=== PATIENT | female | born 1935 | race Caucasian/White ===

== ENCOUNTER → 2025-07-06 | Outpatient (CLI) | payer MEDICARE, SELFPAY ==
[2025-07-06 12:12] LABS: AST(SGOT) 34 U/L (<=31); Alanine Aminotransfer ALT/SGPT 27 U/L (<=34); Albumin, Serum 3.9 g/dL (3.4-4.8); Alkaline Phosphatase 122 U/L (35-104); Anion Gap 11 (5-15); BUN 34 mg/dL (4-19); BUN/Creat Ratio 27.3 RATIO (10-20); Calcium,Total 9.2 mg/dL (7.6-11.0); Carbon Dioxide 23.2 mmol/L (21.0-32.0); Chloride 105 mmol/L (98-108); Globulin 2.9 g/dL (2.2-4.2); Glucose 85 mg/dL (70-99); Magnesium 2.5 mg/dL (1.5-2.2); Potassium 5.2 mmol/L (3.3-5.1)
== END | disposition home or self-care (01) ==
LOC: LAB 11:02
PROVIDERS: PCP Physician Assistant; Referring Provider Internal Medicine Cardiovascular Disease; Visit Provider Internal Medicine Cardiovascular Disease
DX: I10 Essential (primary) hypertension (principal); R55 Syncope and collapse
CPT/HCPCS: 36415; 80053; 83735; 84443

== ENCOUNTER → 2025-07-20 | Outpatient (CLI) | payer MEDICARE, SELFPAY ==
[2025-07-20 10:44] LABS: AST(SGOT) 27 U/L (<=31); Alanine Aminotransfer ALT/SGPT 21 U/L (<=34); Albumin, Serum 4.0 g/dL (3.4-4.8); Alkaline Phosphatase 103 U/L (35-104); Anion Gap 11 (5-15); BUN 22 mg/dL (4-19); BUN/Creat Ratio 21.8 RATIO (10-20); Calcium,Total 9.0 mg/dL (7.6-11.0); Carbon Dioxide 24.2 mmol/L (21.0-32.0); Chloride 105 mmol/L (98-108); Globulin 2.6 g/dL (2.2-4.2); Glucose 96 mg/dL (70-99); Potassium 4.0 mmol/L (3.3-5.1)
== END | disposition home or self-care (01) ==
LOC: LAB 09:31
PROVIDERS: PCP Physician Assistant; Referring Provider Student in an Organized Health Care Education/Training Program; Visit Provider Student in an Organized Health Care Education/Training Program
DX: I10 Essential (primary) hypertension (principal); E78.5 Hyperlipidemia, unspecified; R94.5 Abnormal results of liver function studies
CPT/HCPCS: 36415; 80053

== ENCOUNTER → 2025-07-24 | Outpatient (CLI) | payer MEDICARE, SELFPAY ==
--- NOTE | 2025-07-24 08:12 | CDU_ITS ---
Reason For Study Reason For Study: Syncope Rt. Velocities/BP Lt. Velocities/BP Prox CCA 64.4/14.9 cm/sec. Prox CCA 108.8/21.6 cm/sec. Mid CCA 66.6/16.0 cm/sec. Mid CCA 61.1/17.1 cm/sec. Dist CCA 56.7/19.3 cm/sec. Dist CCA 64.4/19.3 cm/sec. Prox ICA 132.1/27.9 cm/sec. Prox ICA 49.0/17.1 cm/sec. Mid ICA 85.4/26.2 cm/sec. Mid ICA 80.9/24.8 cm/sec. Dist ICA 96.0/30.0 cm/sec. Dist ICA 83.1/22.6 cm/sec. Rt. ICA/CCA = 2.0. Lt. ICA/CCA = 1.4. Prox ECA 63.3/8.4 cm/sec. Prox ECA 134.4/24.8 cm/sec. Rt. Vert. 49.4/9.2 cm/sec. Lt. Vert. 58.2/11.0 cm/sec. Right Extracranial There is homogeneous, smooth atherosclerotic plaque noted in the right common carotid artery. There is heterogeneous, irregular atherosclerotic plaque noted in the right internal carotid artery. There is heterogeneous, irregular atherosclerotic plaque noted in the right external carotid artery. Antegrade flow is noted in the right vertebral artery. Left Extracranial There is intimal thickening but no significant atherosclerotic plaque noted in the left common carotid artery. There is heterogeneous, irregular atherosclerotic plaque noted in the left internal carotid artery. There is heterogeneous, irregular atherosclerotic plaque noted in the left external carotid artery. Antegrade flow is noted in the left vertebral artery. Procedure Carotid Duplex 54812. This is a Carotid Duplex examination using B-mode, color flow and specral Doppler. The exam was diagnostic. Exam performed in department. VL/Carotid Duplex Ultrasound Interpretation Summary Moderate (50-69%) stenosis right extracranial internal carotid. Mild (<50%) stenosis left extracranial internal carotid. Patent and antegrade vertebrals bilaterally. Ordering Physician: Bob Nascimento Referring Physician: Kevin Mckeon Performed By: Jacob Tovar RVT and Student
--- NOTE | 2025-07-24 08:20 | CT_ITS ---
PROCEDURE: BRAIN/HEAD W/WO CONTRAST 07/24/2025 REASON FOR EXAM: SYNCOPE (PASSING OUT EPISODES) TECHNIQUE: Procedure Code: CTBRWW Modality: CT Procedure: BRAIN/HEAD W/WO CONTRAST Coronal and Sagittal reconstruction series were provided. CONTRAST: VOLUME: mL One or more dose reduction techniques were used (e.g., Automated exposure control, adjustment of the mA and/or kV according to patient size, use of iterative reconstruction technique). FINDINGS: No acute intracranial hemorrhage. No midline shift. Mild generalized atrophy. Bilateral benign basal ganglia calcifications. Moderate to severe confluence FLAIR hyperintensities throughout the bilateral cerebral white matter likely represent chronic microvascular ischemic changes.. Atherosclerotic calcifications are noted within the carotid siphons. No extra-axial fluid collection is identified. No fracture. The calvarium is intact. The visualized paranasal sinuses and mastoid air cells are clear. No abnormal enhancement pattern. CT/Brain/Head W/WO Contrast IMPRESSION: No acute intracranial CT abnormality. Chronic intracranial findings, as described above. Reading Location: [id number]
--- OUTSIDE RECORDS SUMMARY | 2025-07-24 08:34 | XMS RPT_ITS | CCD ---
Author Organization [facility] Care Team Providers Care Water Treatment Plant Engineer Name Role Phone VANESSA CONDE Unavailable Unavailable KROEN, MAYA D Unavailable Unavailable KROEN, MAYA D Unavailable Unavailable VIGNESH CONNELLY, DR DAYANNA Buchanan Attending Unavail able VIGNESH DO, DR DAYANNA Buchanan Primary Care Unavail able VIGNESH DO, DR DAYANNA Buchanan Attending Unavail able VIGNESH DO, DR DAYANNA Buchanan Primary Care Unavail able CHIN, LUKE E Admitting Unavailable CHIN, LUKE E Primary Care Unavailable CHIN, LUKE E Consulting Unavailable CHIN, LUKE E Attending Unavailable PROVIDER, UNKNOWN Consulting Unavailable GONSALEZ, ONIEL Admitting Unavailable GONSALEZ, ONIEL Primary Care Unavailable GONSALEZ, ONIEL Attending Unavailable Chin Kevin PALAFOX Primary Care Physician [phone] Kevin Mcintyre Referring Provider Dr. Bob Nascimento MD Attending Physician Kevin Mcintyre Primary Care Physician [phone] Dr. Bob Nascimento MD Referring Provider Bob Nascimento Attending Unavailable Chin, Luke Referring Unavailable Chin, Luke Primary Care Unavailable Azam Bob Referring Unavailable AzamBob Attending Unavailable Chin, Luke Primary Care Unavailable AzamFreda dennisond Referring Unavailable Azam Bob Attending Unavailable Chin, Luke Primary Care Unavailable Chin, Luke Primary Care Unavailable Demiter, Azael Referring Unavailable Demiter, Azael Attending Unavailable Azam Bob Referring Unavailable AzamFredad Attending Unavailable Chin, Luke Primary Care Unavailable Medications Current Medications Medication Drug Class(es) Dates Sig (Normalized) Sig (Original) aspirin 81 mg oral tablet (2 sources) Platelet Aggregation Inhibitor, Nonsteroidal Anti-inflammatory Drug Start: 07-06-2025 take 1 tablet by mouth once daily factor 5 (2 sources) Start: 07-06-2025 forever arctic sea (2 sources) Start: 07-06-2025 garlic-Thyme (2 sources) Start: 07-06-2025 losartan potassium 50 mg oral tablet (4 sources) Angiotensin 2 Receptor Trevor Start: 07-06-2025 End: 07-06-2025 take 1 tablet by mouth once daily oral chelation 11 (2 sources) Start: 07-06-2025 vit b12 (2 sources) Start: 07-06-2025 Completed/Discontinued Medications Medication Drug Class(es) Dates Sig (Normalized) Sig (Original) lisinopril 5 mg oral tablet (2 sources) Angiotensin Converting Enzyme Inhibitor Start: 06-15-2025 End: 07-06-2025 take 1 tablet by mouth once daily Lisinopril 5 mg tablet Discontinued 5 mg PO daily June 15, 2025 12:00am July 06, 2025 11:47am Problems Problem Classification Problem Date Documented Da te Episodic/Chronic Cardiac dysrhythmias (5 sources) Multiple premature ventricular complexes; Translations: [Ventricular premature depolarization] Onset: 07-19-2025 07-06-2025 Chronic Essential hypertension (5 sources) Hypertensive disorder; Translations: [Essential (primary) hypertension] Onset: 07-16-2025 07-06-2025 Chronic Genitourinary symptoms and ill-defined conditions (1 source) Frequency of micturition; Translations: [Frequency of micturition] Onset: 01-16-2025 Episodic Other aftercare (2 sources) Other snf (current) drug therapy; Translations: [Other formwork carpenter (current) drug therapy] Onset: 02-10-2023 Episodic Other screening for suspected conditions (not mental disorders or infectious disease) (4 sources) Encounter for screening for lipoid disorders; Translations: [Electrocardiogram abnormal] Onset: 02-10-2023 Episodic Syncope (7 sources) Syncope; Translations: [Syncope and collapse] Onset: 06-01-2018 07-06-2025 Episodic Unclassified (1 source) Unknown / UNK(Unknown) Onset: 06-01-2018 Results Test Name Value Interpretation Reference Range Facility Comprehensive Metabolic Prof earl 07-20-2025 Albumin [Mass/Vol] 4.0 g/dL Normal 3.4-4.8 [facility] Comment on above: Performed By: #### L 500.4050 #### [facility] [address] [place], [address] Albumin/Globulin [Mass ratio] 1.5 {ratio} Normal 0.9-2.4 [facility] Comment on above: Performed By: #### L [id number] #### [facility] [address] [place], [address] ALK PHOS 103 U/L Normal 35-104 [facility] Comment on above: Performed By: #### L [id number] #### [facility] [address] [place], [address] ALT [Catalytic activity/Vol] 21 U/L Normal <=34 [facility] Comment on above: Performed By: #### L [id number] #### [facility] [address] [place], [address] AST [Catalytic activity/Vol] 27 U/L Normal <=31 [facility] Comment on above: Performed By: #### L [id number] #### [facility] [address] [place], [address] Bilirubin [Mass/Vol] 0.44 mg/dL Normal 0.00-1.30 [facility] Comment on above: Performed By: #### L [id number] #### [facility] [address] [place], [address] BUN/CRE 21.8 RATIO High 10-20 [facility] Comment on above: Performed By: #### L [id number] #### [facility] [address] [place], [address] Calcium [Mass/Vol] 9.0 mg/dL Normal 7.6-11.0 [facility] Comment on above: Performed By: #### L 500.4050 #### [facility] [address] [place], [address] Chloride [Moles/Vol] 105 mmol/L Normal 98-108 [facility] Comment on above: Performed By: #### L [id number] #### [facility] [address] [place], [address] CO2 [Moles/Vol] 24.2 mmol/L Normal 21.0-32.0 [facility] Comment on above: Performed By: #### L [id number] #### [facility] [address] [place], [address] Creatinine [Mass/Vol] 0.99 mg/dL Normal 0.70-1.20 [facility] Comment on above: Performed By: #### L [id number] #### [facility] [address] [place], [address] GAP 11 Normal 5-15 [facility] Comment on above: Performed By: #### L [id number] #### [facility] [address] [place], [address] GFR/1.73 sq M.predicted among non-blacks MDRD (S/P/Bld) [Vol rate/Area] 55 mL/min/{1.73_m2} Low >60 [facility] Comment on above: Result Comment: mL/m in/1.73m2 CKD-EPI Creatinine Equation (2020) Performed By: #### L [id number] #### [facility] [address] [place], [address] Globulin (S) [Mass/Vol] 2.6 g/dL Normal 2.2-4.2 [facility] Comment on above: Performed By: #### L [id number] #### [facility] [address] [place], [address] Glucose [Mass/Vol] 96 mg/dL Normal 70-99 [facility] Comment on above: Performed By: #### L [id number] #### [facility] [address] [place], [address] Potassium [Moles/Vol] 4.0 mmol/L Normal 3.3-5.1 [facility] Comment on above: Performed By: #### L 500.4050 #### [facility] [address] [place], [address] Sodium [Moles/Vol] 140 mmol/L Normal 133-145 [facility] Comment on above: Performed By: #### L 500.4050 #### [facility] [address] [place], [address] T PROT 6.6 g/dL Normal 5.9-8.4 [facility] Comment on above: Performed By: #### L [id number] #### [facility] [address] [place], [address] Urea nitrogen [Mass/Vol] 22 mg/dL High 4-19 [facility] Comment on above: Performed By: #### L 500.4050 #### [facility] [address] [place], [address] Anion gap in Serum or Plasma Ordered By: Bob Nascimento on 07-06-2025 Anion gap [Moles/Vol] 11 mmol/L 5-15 [facility] BUN/creatinine ratioOrdered By: Bob Nascimento on 07-06-2025 Urea nitrogen/Creatinine [Mass ratio] 27.3 mg/mg High 10-20 [facility] Bilirubin, totalOrdered By: Bob Nascimento on 07-06-2025 Bilirubin [Mass/Vol] 0.32 mg/dL 0.00-1.30 [facility] Carbon dioxide, total [Moles /volume] in Central venous bloodOrdered By: Bob Nascimento on 07-06-2025 CO2 [Moles/Vol] 23.2 mmol/L 21.0-32.0 [facility] Cardiology Visit Reporton Cardiology Visit Report [facility] [address] [place] [address] OFFICE VISIT Date of Service: 07/06/25 MR#: [id number] Acct: [id number] Name: ELLA LAWSON Rep #: [id number] : 1935 Provider: Dr. Bob Nascimento MD Age/Sex: 89/F Location: [facility] Status: Signed HPI HPI History of Present Illness Details: This pleasant 89-year-old female has past medical history significant for hypertension. She is here for her complaints of syncopal episodes. According to the patient, she has been having syncopal episodes for many years now. She would get them rarely in the past but recently she has been getting them more frequently. She has had a synco pal episode in January of this year and then again last month. Per patient, she would be sitting when all of a sudden she loses consciousness. Denies any prodromal symptoms. No warning signs. Denies any chest pains or shortness of breath prior to that or afterwards. No lightheadedness or dizziness. No palpitations. No diaphoresis. Per patient and her daughter, she regains consciousness spontaneously after couple of minutes. No seizure activity has ever been noticed. No bladder or bowel incontinence. Patient recently had a 30-day event monitoring done. It showed occasional first-degree AV block. PACs and PVCs were noted. No significant atrial or ventricular runs reported. Patient denies any history of chest pain or shortness of breath either at rest or with exertion. No severe headaches. No orthopnea or PND. Denies any palpitations. No ankle edema. Intake Vital Signs 07/06/25 10:09 Height 5 ft 6 in Weight: 168 lb BMI 27.1 BP 172/88 H Blood Pressure Location Lt brachial Position Sitting Respiration 18 Pulse 57 L Pulse Source Monitor Intake Visit Reasons: PAC/PVC/AFIB (CHIN) Director Of Outreach Required: No Accompanied by: Daughter Is patient in pain?: No Allergies No Known Allergies Allergy (Unverified 07/06/25 09:59) Medications ???Medication ???Instructions ???Recorded ???Confirmed ???Type lisinopril 5 mg tablet 5 mg PO QDAY 06/15/25 07/06/25 His tory aspirin 81 mg tablet 81 mg PO QDAY 07/06/25 07/06/25 Hi story factor 5 PO QDAY 07/06/25 07/06/25 History forever arctic sea PO BID 07/06/25 07/06/25 History garlic-Thyme PO BID 07/06/25 07/06/25 History oral chelation 11 PO DAILY 07/06/25 07/06/25 History vit b12 PO BID 07/06/25 07/06/25 History Have you fallen in the past year?: Yes (2- pass out) [facility] Medical History (Updated 07/06/25 @ 10:[address] Bob Nascimento MD) Heart murmur Hypertension Syncope Hyperlipidemia Social History (Updated 06/15/25 @ 15:33 by Caity Adan LPN) Smoking Status: Never smoker substance use type: does not use caffeine: No ROS Const Const: Positive for fatigue; Negative for weakness Eyes Eyes: Negative for change in vision ENT ENT: Positive for balance problems; Negative for dizziness Cardio Chest Pain: No Palpitations: No Edema: Bilateral Resp Respiratory: Negative for SOB with activity, SOB at rest or SOB orthopnea SOB lying down GI GI: Negative nausea or heartburn Musc Musc: Positive for balance problems Neuro Neuro: Positive for near syncope and syncope; Negative for dizziness or weakness Endo Endo: Positive for fatigue Cardiology Exam Const Appearance: comfortable and no acute distress Nutritional Appearance: well nourished Neck Neck: no JVD Carotids: Negative bruit Chest Auscultation: Bilateral: Clear to Auscultation Cardio Rate: regular rate Rhythm: regular rhythm Heart sounds: S1 normal and S2 normal Soft systolic murmur at base. Neuro General: patient alert, patient awake and patient oriented x3 Extremities Lower Extremity Edema: None: Bilateral Supplemental Info Supplemental Information Past Visits: Cardiology Visit Today Assessment and Plan Assessment and Plan (1) Syncope: Status: Chronic Plan: Longstanding issue for the patient but becoming more frequent. Will check echocardiogram. Check Lexiscan stress Myoview. Check carotid Doppler. CT scan of the head. (2) Hypertension: Status: Chronic Plan: Blood pressure above goal. DC lisinopril. Start on losartan 50 mg once daily. (3) PVCs (premature ventricular contractions): Status: Chronic Plan: PVCs and PACs noted on 30-day event monitoring. Asymptomatic. First-degree AV block. Likely underlying sick sinus syndrome. Monitor. Check TSH. Magnesium. Basic serum chemistries. Orders: Orders 12 Lead EKG performed by BMS Today I10 - Essential (primary) hypertension, R55 - Syncope and collapse Thyroid Stim Hormone (TSH) Today I10 - Essential (primary) hypertension Comprehensive Metabolic Profil Today I10 - Essential (primary) hypertension (more content not included)... Normal [facility] Chloride assayOrdered By: Jean Claude Nascimento on 07-06-2025 Chloride [Moles/Vol] 105 mmol/L 98-108 [facility] Comprehensive Metabolic Prof ilon 07-06-2025 Albumin [Mass/Vol] 3.9 g/dL Normal 3.4-4.8 [facility] Comment on above: Performed By: #### L 500.4050, L501.5200, L501.9520 #### [facility] [address] [place], [address] Albumin/Globulin [Mass ratio] 1.4 {ratio} Normal 0.9-2.4 [facility] Comment on above: Performed By: #### L 500.4050, L501.5200, L501.9520 #### [facility] [address] [place], [address] ALK PHOS 122 U/L High 35-104 [facility] Comment on above: Performed By: #### L 500.4050, L501.5200, L501.9520 #### [facility] [address] [place], [address] ALT [Catalytic activity/Vol] 27 U/L Normal <=34 [facility] Comment on above: Performed By: #### L 500.4050, L501.5200, L501.9520 #### [facility] [address] [place], [address] AST [Catalytic activity/Vol] 34 U/L High <=31 [facility] Comment on above: Performed By: #### L 500.4050, L501.5200, L501.9520 #### [facility] [address] [place], [address] Bilirubin [Mass/Vol] 0.32 mg/dL Normal 0.00-1.30 [facility] Comment on above: Performed By: #### L 500.4050, L501.5200, L501.9520 #### [facility] [address] [place], [address] BUN/CRE 27.3 RATIO High 10-20 [facility] Comment on above: Performed By: #### L 500.4050, [id number], L501.9520 #### [facility] [address] [place], [address] Calcium [Mass/Vol] 9.2 mg/dL Normal 7.6-11.0 [facility] Comment on above: Performed By: #### L 500.4050, L501.5200, L501.9520 #### [facility] [address] [place], [address] Chloride [Moles/Vol] 105 mmol/L Normal 98-108 [facility] Comment on above: Performed By: #### L 500.4050, L501.5200, L501.9520 #### [facility] [address] [place], [address] CO2 [Moles/Vol] 23.2 mmol/L Normal 21.0-32.0 [facility] Comment on above: Performed By: #### L 500.4050, L501.5200, L501.9520 #### [facility] [address] [place], [address] Creatinine [Mass/Vol] 1.25 mg/dL High 0.70-1.20 [facility] Comment on above: Performed By: #### L 500.4050, [id number], L501.9520 #### [facility] [address] [place], [address] GAP 11 Normal 5-15 [facility] Comment on above: Performed By: #### L 500.4050, [id number], L501.9520 #### [facility] [address] [place], [address] GFR/1.73 sq M.predicted among non-blacks MDRD (S/P/Bld) [Vol rate/Area] 41 mL/min/{1.73_m2} Low >60 [facility] Comment on above: Result Comment: mL/m in/1.73m2 CKD-EPI Creatinine Equation (2020) Performed By: #### L 500.4050, L501.5200, L501.9520 #### [facility] [address] [place], [address] Globulin (S) [Mass/Vol] 2.9 g/dL Normal 2.2-4.2 [facility] Comment on above: Performed By: #### L 500.4050, L501.5200, L501.9520 #### [facility] [address] [place], [address] Glucose [Mass/Vol] 85 mg/dL Normal 70-99 [facility] Comment on above: Performed By: #### L 500.4050, L501.5200, L501.9520 #### [facility] [address] [place], [address] Potassium [Moles/Vol] 5.2 mmol/L High 3.3-5.1 [facility] Comment on above: Performed By: #### L 500.4050, L501.5200, L501.9520 #### [facility] [address] [place], [address] Sodium [Moles/Vol] 139 mmol/L Normal 133-145 [facility] Comment on above: Performed By: #### L 500.4050, [id number], L501.9520 #### [facility] [address] [place], [address] T PROT 6.9 g/dL Normal 5.9-8.4 [facility] Comment on above: Performed By: #### L 500.4050, L501.5200, L501.9520 #### [facility] [address] [place], [address] Urea nitrogen [Mass/Vol] 34 mg/dL High 4-19 [facility] Comment on above: Performed By: #### L 500.4050, L501.5200, L501.9520 #### [facility] [address] [place], [address] Glomerular filtration rate ( GFR) estimation/1.73 sq m using serum, plasma, or whole bOrdered By: Bob Nascimento on 07-06-2025 GFR/1.73 sq M.predicted among non-blacks MDRD (S/P/Bld) [Vol rate/Area] 41 mL/min/{1.73_m2} Low >60 [facility] Comment on above: mL/min/1.73m2 CKD-EP I Creatinine Equation (2020) Laboratory - Chemistry and C hemistry - challengeOrdered By: Bob Nascimento on 07-06-2025 AST [Catalytic activity/Vol] 34 U/L High <32 [facility] Magnesiumon 07-06-2025 Magnesium [Mass/Vol] 2.5 mg/dL High 1.5-2.2 [facility] Comment on above: Performed By: #### L 500.4050, L501.5200, L501.9520 #### [facility] [address] [place], [address] Magnesium measurement (mass/ volume)Ordered By: Bob Nascimento on 07-06-2025 Magnesium (Unsp spec) [Mass/Vol] 2.5 mg/dL High 1.5-2.2 [facility] Potassium measurement (mass/ volume)Ordered By: Bob Nascimento on 07-06-2025 Potassium (Unsp spec) [Mass/Vol] 5.2 mmol/L High 3.3-5.1 [facility] Serum creatinine measurement (mass/volume)Ordered By: Bob Nascimento on 07-06-2025 Creatinine [Mass/Vol] 1.25 mg/dL High 0.70-1.20 [facility] Serum globulin measurementOr dered By: Bob Nascimento on 07-06-2025 Globulin (S) [Mass/Vol] 2.9 g/dL 2.2-4.2 [facility] Serum glucose measurement (m ass/volume)Ordered By: Bob Nascimento on 07-06-2025 Glucose [Mass/Vol] 85 mg/dL 70-99 [facility] Serum or plasma alanine pires otransferase (ALT) measurementOrdered By: Bob Nascimento on 07-06-2025 ALT [Catalytic activity/Vol] 27 U/L <35 [facility] Serum or plasma albumin alejandro urement (mass/volume)Ordered By: Bob Nascimento on 07-06-2025 Albumin [Mass/Vol] 3.9 g/dL 3.4-4.8 [facility] Serum or plasma albumin/glob ulin mass ratioOrdered By: Bob Nascimento on 07-06-2025 Albumin/Globulin [Mass ratio] 1.4 {ratio} 0.9-2.4 [facility] Serum or plasma alkaline nancy sphatase measurementOrdered By: Bob Nascimento on 07-06-2025 ALP [Catalytic activity/Vol] 122 U/L High 35-104 [facility] Serum or plasma calcium alejandro urement (mass/volume)Ordered By: Bob Nascimento on 07-06-2025 Calcium [Mass/Vol] 9.2 mg/dL 7.6-11.0 [facility] Serum or plasma urea nitroge n measurement (mass/volume)Ordered By: Bob Nascimento on 07-06-2025 Urea nitrogen [Mass/Vol] 34 mg/dL High 4-19 [facility] Sodium levelOrdered By: Maximino octavio Nascimento on 07-06-2025 Sodium [Moles/Vol] 139 mmol/L 133-145 [facility] TSH DL <= 0.005 mIU/L QnOrde red By: Bob Laytonan on 07-06-2025 TSH Qn 2.760 uIU/mL 0.300-4.20 0 [facility] Thyroid Stim Hormone (TSH)on 07-06-2025 TSH 2.760 uIU/mL Normal 0.300-4.20 0 [facility] Comment on above: Performed By: #### L 500.4050, L501.5200, L501.9520 #### [facility] [address] [place], [place], [id number] Total proteinOrdered By: Jay Nascimento on 07-06-2025 Protein [Mass/Vol] 6.9 g/dL 5.9-8.4 [facility] [address] BRAIN W/O CONTRASTon 06-2 CT BRAIN W/O CONTRAST [place] [address] Patient: ELLA LAWSON Phone#: : 1935 Age: 89 Gender: F Pt. Type: Out Account: [id number] Location: Ordering: KEVIN NEELY Exam Date: 04/14/2025/14:03 Family Phys: Charge Code: 564431 Physician: [place] Order #: [id number] Dose#: [id number] PROCEDURE: CT BRAIN WITHOUT CONTRAST COMPARISON: None. INDICATIONS: Syncope. TECHNIQUE: CT images were obtained without contrast material. All CT scans at this facility use dose modulation, iterative reconstruction, and/or weight based dosing when appropriate to reduce radiation dose to as low as reasonably achievable. IV CONTRAST: No IV contrast used,0ml TOTAL DOSE: 57.50 CTDIvol(mGy) FINDINGS: CEREBRUM: Age-appropriate atrophy is present, without visible acute hemorrhage or lesion. Small vessel disease changes are present. Idiopathic calcifications at the basal ganglia are present. CEREBELLUM: No edema, hemorrhage, mass, acute infarction, or inappropriate atrophy. BRAINSTEM: No edema, hemorrhage, mass, acute infarction, or inappropriate atrophy. CSF SPACES: Ventricles, cisterns, and sulci are appropriate for age. No hydrocephalus, subarachnoid hemorrhage, or mass. SKULL: No mass or other significant visible lesion. SINUSES: Limited views demonstrate no significant mucosal thickening or fluid. ORBITS: Limited views are unremarkable. OTHER: Negative. CONCLUSION: 1. There is no evidence of acute intracranial abnormality. Dictated by: Jackie Farooq MD on 04/14/2025 at 15:32 Approved by: Jackie Farooq MD on 04/14/2025 at 15:45 Normal [facility] Bacteria Ur Culton 5 Bacteria identified Cx Nom (U) ORGANISM ID: 1 >=100,000 CFU/ml Mixed microbiota No further workup. Mixed microbiota can be due to???urine???contamination with skin bacteria at time of collection or presence of a long-term urinary catheter. If a new culture is needed, please consider re-education of the patient on proper midstream co llection technique or straight catheterization for???urine???collection. Normal [facility] Comment on above: Performed By: #### 6 30-4 #### [facility] CLIA [id number] [address] [place] [address] OF [facility] URINE CULTURE [CCL]on 2024 Bacteria identified Cx Nom (U) URCUL See Results Below See Below CULTURE, URINE MIXED MICROBIOTA >=100,000 CFU/ml Mixed microbiota No further workup. Mixed microbiota can be due to???urine???contamination with s llection technique or straight catheterization for???urine???collection. SOURCE: Urine (Nonspecific) [facility] [address] [place] [address] Oscar Beauchamp III, M.D. [id number] Normal [facility] Comment on above: Performed By: #### 2 [id number] #### [facility],[address] [place] [address] .GFRon 02-10-2023 GFR 78 ml/min/1.73sqm Normal [facility] ([place]) Comment on above: Result Comment: GFR Population mean for , Non- Americans Ages 20-29 = 116 mL/min/1.73 sq.m. Ages 30-39 = 107 mL/min/1.73 sq.m. Ages 40-49 = 99 mL/min/1.73 sq.m. Ages 50-59 = 93 mL/min/1.73 sq.m. Ages 60-69 = 85 mL/min/1.73 sq.m. Ages 70+ = 75 mL/min/1.73 sq.m. Chronic Kidney Disease: Less than 60 mL/min/1.73 square meters End Stage Renal Disease: Less than 15 mL/min/1.73 square meters Performed By: #### C MP, LIPID, GFR #### [place] [id number] GFR Non- 64 ml/min/1.73sqm Normal [facility] ([place]) Comment on above: Result Comment: GFR Population mean for , Non- Americans Ages 20-29 = 116 mL/min/1.73 sq.m. Ages 30-39 = 107 mL/min/1.73 sq.m. Ages 40-49 = 99 mL/min/1.73 sq.m. Ages 50-59 = 93 mL/min/1.73 sq.m. Ages 60-69 = 85 mL/min/1.73 sq.m. Ages 70+ = 75 mL/min/1.73 sq.m. Chronic Kidney Disease: Less than 60 mL/min/1.73 square meters End Stage Renal Disease: Less than 15 mL/min/1.73 square meters Performed By: #### C MP, LIPID, GFR #### [address] [address] CMPon 02-10-2023 Albumin Level 3.6 G/dL Normal 3.4-4.8 [facility] ([place]) Comment on above: Performed By: #### C MP, LIPID, GFR #### [address] [address] Albumin/Globulin [Mass ratio] 1.1 {ratio} Normal 1.1-2.5 [facility] ([place]) Comment on above: Performed By: #### C MP, LIPID, GFR #### [address] [address] ALP [Catalytic activity/Vol] 123 U/L Normal 40-135 [facility] ([place]) Comment on above: Performed By: #### C MP, LIPID, GFR #### [address] [address] ALT [Catalytic activity/Vol] 29 U/L Normal 14-59 [facility] ([place]) Comment on above: Performed By: #### C MP, LIPID, GFR #### [address] [address] AST [Catalytic activity/Vol] 21 U/L Normal 10-40 [facility] ([place]) Comment on above: Performed By: #### C MP, LIPID, GFR #### [address] [address] Bili Total 0.4 mg/dL Normal 0.2-1.0 [facility] ([place]) Comment on above: Result Comment: Use of this assay is not recommended for patients undergoing treatment with eltrombopag due to the potential for falsely elevated results. Performed By: #### C MP, LIPID, GFR #### [address] [address] BUN/Creatinine Ratio 25 ratio Normal 7-27 [facility] ([place]) Comment on above: Performed By: #### C MP, LIPID, GFR #### [address] [address] Calcium [Mass/Vol] 9.4 mg/dL Normal 8.4-10.2 [facility] ([place]) Comment on above: Performed By: #### C MP, LIPID, GFR #### [address] [address] Chloride [Moles/Vol] 104 mmol/L Normal 98-107 [facility] ([place]) Comment on above: Performed By: #### C MP, LIPID, GFR #### [address] [address] CO2 [Moles/Vol] 28 mmol/L Normal 23-31 [facility] ([place]) Comment on above: Performed By: #### C MP, LIPID, GFR #### [address] [address] Creatinine [Mass/Vol] 0.84 mg/dL Normal 0.55-1.02 [facility] ([place]) Comment on above: Performed By: #### C MP, LIPID, GFR #### [address] [address] Electrolyte Balance 8.0 mEq/L Normal 4.0-15.0 [facility] ([place]) Comment on above: Performed By: #### C MP, LIPID, GFR #### [address] [address] Globulin 3.3 G/dL Normal [facility] ([place]) Comment on above: Performed By: #### C MP, LIPID, GFR #### [address] [address] Glucose [Mass/Vol] 91 mg/dL Normal 83-110 [facility] ([place]) Comment on above: Performed By: #### C MP, LIPID, GFR #### [address] [address] Potassium [Moles/Vol] 4.5 mmol/L Normal 3.5-5.1 [facility] ([place]) Comment on above: Performed By: #### C MP, LIPID, GFR #### [address] [address] Sodium [Moles/Vol] 140 mmol/L Normal 136-145 [facility] ([place]) Comment on above: Performed By: #### C MP, LIPID, GFR #### [address] [address] Total Protein 6.9 G/dL Normal 6.4-8.2 [facility] ([place]) Comment on above: Performed By: #### C MP, LIPID, GFR #### [address] [address] Urea nitrogen [Mass/Vol] 21 mg/dL High 7-18 [facility] ([place]) Comment on above: Performed By: #### C MP, LIPID, GFR #### [address] [address] LIPIDon 02-10-2023 Cholesterol [Mass/Vol] 256 mg/dL High 0-200 [facility] ([place]) Comment on above: Result Comment: Chol esterol Reference Interval: Less than 200 Desirable 200-239 Borderline high risk 240 and above High risk Performed By: #### C MP, LIPID, GFR #### [address] [address] Cholesterol in HDL [Mass/Vol] 73 mg/dL High 40-60 [facility] ([place]) Comment on above: Performed By: #### C MP, LIPID, GFR #### [address] [address] Cholesterol in LDL [Mass/Vol] 169 mg/dL High 0-130 [facility] ([place]) Comment on above: Performed By: #### C MP, LIPID, GFR #### [address] [address] Triglyceride [Mass/Vol] 68 mg/dL Normal 0-150 [facility] ([place]) Comment on above: Result Comment: Trig lyceride Reference Interval: Less than 150 Normal 150-199 Borderline high risk 200-499 High risk 500 or higher Very high risk Performed By: #### C MP, LIPID, GFR #### [address] [address] FC HIP UNILATERAL 2-3 VIEWSo n 09-08-2021 FC HIP UNILATERAL 2-3 VIEWS [place] [id number] Name: ELLA LAWSON Phys: NIXON DIAS : [birth year] Age: 86 Sex: F Acct: [id number] Loc: [id number] Exam Date: 09/08/21 Status: REG POV Radiology No.: Unit Number: [id number] Exam # Type/Exam [id number] [facility] / FC HIP UNILATERAL 2-3 VIEWS LT EXAMINATION: XRAY VIEWS OF THE LEFT HIP09/08/2021 10:48 am HIP LEFT COMPARISON: None HISTORY: ORDERING SYSTEM PROVIDED HISTORY: TECHNOLOGIST PROVIDED HISTORY: Reason for Exam: FALL FINDINGS: There is a fracture of the left pelvic ring with fracture lucencies through the superior and inferior pubic rami. Alignment at the pubic symphysis is symmetric, although there is significant degenerative change at the pubic symphysis. The left proximal femur and acetabulum are intact as is femoroacetabular alignment. Bones are demineralized. Degenerative changes in the lower lumbosacral spine also noted. Bowel gas pattern is nonobstructive.. IMPRESSION: Left pelvic ring fracture involving the superior and inferior pubic rami. Electronically signed By Karina Paez 09/08/2021 10:54:43 AM EST Workstation ID : [id number] < > Reported By: KARINA PAEZ D.O. Signed In Fluency By: KARINA PAEZ D.O. << Signature on File>> Reported By: KARINA PAEZ D.O. Signed By: KARINA PAEZ D.O. Tests performed at: [address] [address] Normal [facility] EMERGENCY DEPARTMENT REPORTo n 06-04-2018 EMERGENCY DEPARTMENT REPORT [place], [place] [address]FUFFLB INFORMATION MANAGEMENTEMERGENCY DEPARTMENT REPORTPatient: ELLA LAWSON JOEL A M.D.[id number][birth year] 83 FStatus: DIS Gail [facility] 2226-BDate of Service: 06/01/18CHIEF COMPLAINTSyncopal episode.HISTORY OF PRESENT ILLNESSThis is an 83-year-old lady brought in today with a syncopal episode that happened todaywhile she was seated. No other complaints. She had no warning prior to this. Shebasically was just sitting in the kitchen, helping, all of a sudden slumped over. She wasout for about 5 minutes they think. They did not notice any seizure activity. There wasno postictal phase and she did not have any numbness or weakness when she woke up. She hada similar episode several months ago while sitting in a [place] service. Again this was notwith standing and it occurred while she was seated and really with no warning again. Noother complaints at this point. She does not have a doctor, is not on any medicines.PAST SURGICAL HISTORYHad her appendix taken out in the distant past.MEDICATIONSNone.ALLERGI ESNone.FAMILY HISTORYNoncontributory.SOCIA L HISTORYNoncontributory.PHYSI DOREEN EXAMINATIONGeneral: A well-nourished, well-developed female who is awake, alert, and currently not inany acute distress. Vital signs: As charted. HEENT: Atraumatic and normocephalic.Oropharynx is moist. Neck is supple. No adenopathy or thyromegaly, no JVD. Cardiovascular:Regular rate and rhythm. There is a 3/6 systolic murmur, does radiate up into her carotids,was fairly holosystolic. Lungs are clear. The abdomen is soft. Neck is supple.Extremities: No clubbing, no cyanosis, no edema. She is neurologically awake, alert andoriented x3. Cranial nerves II through XII are intact. Sensory and motor exam is normal.Reflexes 2+, symmetric. Toes are downgoing.REVIEW OF SYSTEMSShe has not had any fevers, chills, or constitutional symptoms. No visual acuity problems.No problems with the ears, nose, mouth, or throat. Denies any productive cough or coldsymptoms. No bright red blood per rectum or melena. No urinary symptoms. No extremityedema, swelling, skin rashes, focal numbness, weakness, or confusion. No hallucinations,problems with hot or cold intolerance or lymph node swelling. She has had a history of somechronic left knee pain but no swelling recently. She was on a long car trip recently buthas not had any chest pain or shortness of breath. Review of systems is otherwise negative.EMERGENCY DEPARTMENT COURSEA 12-lead EKG was obtained and showed normal sinus rhythm, possibly with some LVH and somenonspecific ST depression laterally. Chest x-ray shows a normal-sized cardiac silhouette.There is no cardiomegaly. Laboratory studies including a CBC, basic, CPK, and troponin arenegative.CLINICAL DIAGNOSISSyncope.DISPOSITION /PLANShe is going to be admitted for further evaluation, echo, and monitoring. She had nofurther problems throughout the remainder of the emergency department course.ADMIT 06/14/18 1638 VANESSA CONDE M.D.cc: VANESSA CONDE M.D. << Signature on File>> Reported By: VANESSA CONDE M.D. Signed By: VANESSA CONDE M.D.Tests performed at:[address] [phone] [facility] 06-03-2018 Anion gap 3 molar conc 16.0 mmol/L Normal - [facility] Comment on above: Performed By: #### L 100.0010 ####[address] [address] Calcium mass conc 9.0 mg/dL Normal 8.8-10.2 [facility] Comment on above: Performed By: #### L 100.0010 ####[address] [address] Chloride molar conc 105 mmol/L Normal 98-107 [facility] Comment on above: Performed By: #### L 100.0010 ####[facility] [place] [address] Creatinine mass conc 0.59 mg/dL Normal 0.50-0.90 [facility] Comment on above: Performed By: #### L 100.0010 ####[address] [address] eGFR if AFR SANDRA > 60 ml/min/1.73m2 Normal Count includes the [facility] Comment on above: Result Comment: eGFR >= 60 Indicates normal kidney function. * eGFR IS AN ESTIMATE * (AFR SANDRA = ) (non-AFR AM = NON-) MDRD calculation used in the eGFR should not be used to dose medications. For further limitations of the eGFR please refer to the Physician Website or the National Kidney Disease Education Program website (www.nkdep.nih.gov). Performed By: #### L 100.0010 #### - P[address] [place] [address] eGFR nonAFR Sandra > 60 ml/Min/1.73m2 Normal U [facility] Comment on above: Performed By: #### L 100.0010 ####[address] [address] Glucose mass conc 93 mg/dL Normal 82-115 [facility] Comment on above: Performed By: #### L 100.0010 ####[address] [address] Potassium molar conc 4.0 mmol/L Normal 3.5-5.0 [facility] Comment on above: Performed By: #### L 100.0010 ####[facility] PT[address] [place] [address] Sodium molar conc 144 mmol/L Normal 135-145 [facility] Comment on above: Performed By: #### L 100.0010 ####[address] [address] TCO2 27 mmol/L Normal 22-29 [facility] Comment on above: Performed By: #### L 100.0010 ####[facility] [address] [place] [address] Urea nitrogen mass conc 9 mg/dL Normal 8-23 [facility] Comment on above: Performed By: #### L 100.0010 ####[address] [address] CAROTID ARTERY ULTRASOUNDon 06-03-2018 CAROTID ARTERY ULTRASOUND [place], [place] [address]Awqmpvbp Lab- ICAVL Accredited in:Extracranial Cerebrovascular, Visceral Vascular, Vascular Screening& Peripheral Arterial & Venous TestingPhone: [facility] REPORTPatient: LULUBETSYDARCI Rudd Dr: BINTA AVALOS C.N.P.[id number]/[birth year] 83 FStatus: ADM [facility] TishaHeather for Visit: SYNCOPEService Date: 06/03/18Access#: [id number]: CAROTID ARTERY ULTRASOUNDConclusions:Right1 . Based upon traditional Doppler criteria there appears to be a 1-39% lesion within thelumen of the internal carotid artery causing no hemodynamically significant changes.Left1. Based upon traditional Doppler criteria there appears to be a 1-39% lesion within thelumen of the internal carotid artery causing no hemodynamically significant changes.Abbreviated Final Report. Full Report available via Link to [employer] in [employer] PCI -[employer] Image Viewer .Electronically Signed by: RACHELLE HOYOS M.D. 06/03/18 1416 RACHELLE HOYOS M.D.cc: BINTA AVALOS C.N.P. << Signature on File>> Reported By: RACHELLE HOYOS M.D. Signed By: RACHELLE HOYOS M.D.Tests performed at:[address] [phone] Normal [facility] CBCon 06-03-2018 Basophils Auto #/vol (Bld) 0.00 x10(3) Normal 0.00-0.10 [facility] Comment on above: Performed By: #### L 100.0010 ####[facility] [id number] [place] [address] Basophils/100 WBC Auto (Bld) 0.6 % Normal 0.0-1.0 [facility] Comment on above: Performed By: #### L 100.0010 ####ML [facility] Z[address] [place] [address] Eosinophils Auto #/vol (Bld) 0.10 x10(3) Normal 0.00-0.54 [facility] Comment on above: Performed By: #### L 100.0010 ####ML [facility] IL[address] [place] [address] Eosinophils/100 WBC Auto (Bld) 2.2 % Normal 0.5-4.9 [facility] Comment on above: Performed By: #### L 100.0010 ####ML [address] [address] Erythrocyte distribution width Auto Ratio (RBC) 13.3 % Normal 12.5-15.7 [facility] Comment on above: Performed By: #### L 100.0010 ####ML [address] [address] Hematocrit Auto Volume Fraction (Bld) 42.1 % Normal 36.0-48.0 [facility] Comment on above: Performed By: #### L 100.0010 ####ML [address] [address] Hemoglobin mass conc (Bld) 14.2 g/dL Normal 12.0-16.0 [facility] Comment on above: Performed By: #### L 100.0010 ####[address] [address] Lymphocytes Auto #/vol (Bld) 2.10 x10(3) Normal 1.00-3.50 [facility] Comment on above: Performed By: #### L 100.0010 ####ML [address] [address] Lymphocytes/100 WBC Auto (Bld) 32.9 % Normal 16.0-48.0 [facility] Comment on above: Performed By: #### L 100.0010 ####ML [facility] H[address]MOZ[address] [place] [address] MCH Auto Entitic mass (RBC) 32.2 pg Normal 28.5-32.9 [facility] Comment on above: Performed By: #### L 100.0010 ####ML [address] [address] MCHC Auto mass conc (RBC) 33.8 g/dL Normal 33.0-36.0 [facility] Comment on above: Performed By: #### L 100.0010 ####[address] [address] MCV Auto Entitic volume (RBC) 95.4 fL Normal 80.0-99.0 [facility] Comment on above: Performed By: #### L 100.0010 ####ML [address] [address] Monocytes Auto #/vol (Bld) 0.50 x10(3) Normal 0.30-0.80 [facility] Comment on above: Performed By: #### L 100.0010 ####[address] [address] Monocytes/100 WBC Auto (Bld) 7.8 % Normal 4.3-11.2 [facility] Comment on above: Performed By: #### L 100.0010 ####[address] [address] Neutrophils Auto #/vol (Bld) 3.60 x10(3) Normal 1.40-6.50 [facility] Comment on above: Performed By: #### L 100.0010 ####[address] [address] Neutrophils/100 WBC Auto (Bld) 56.5 % Normal 45.0-73.0 [facility] Comment on above: Performed By: #### L 100.0010 ####[address] [address] Platelet mean volume Auto Entitic volume (Bld) 9.1 fL Normal 7.5-9.5 [facility] Comment on above: Performed By: #### L 100.0010 ####ML [address] [address] Platelets Auto #/vol (Bld) 221 X10(3) Normal 150-450 [facility] Comment on above: Performed By: #### L 100.0010 ####ML [address] [address] RBC Auto #/vol (Bld) 4.41 x10(6) Normal 3.30-5.00 [facility] Comment on above: Performed By: #### L 100.0010 ####ML - [id number] [place] [address] WBC Auto #/vol (Bld) 6.3 x10(3) Normal 4.5-10.0 [facility] Comment on above: Performed By: #### L 100.0010 ####ML - [id number] [place] [address] NM PRICILLA SPECT MULTI [id number] 06-03-2018 NM PRICILLA SPECT MULTI [address] [address]Vckm: ELLA LAWSON MPhys: ABRIL BRINK M.D.: [birth year] Age: 83 Sex: FAcct: [id number] Loc: [facility] Date: 06/03/18 Status: ADM INoRadiology No.: [id number] Number: [id number] # Type/[id number] NM / NM PRICILLA SPECT MULTI [id number] Stress Cardiac Gated SPECTClinical Statement: SyncopeTechnique:Lexiscan dose: 0.4 mg IVRadiopharmaceutical (rest/stress): Tc-99m sestamibi IV Dose: 12 and 35 mCiSPECT acquisition and processing:Images reconstructed and reoriented into short, vertical long, and horizontallong axis planesQuantitative LVEF assessmentComparison: NoneFindings: Mild scintigraphic LV chamber dilatation is suspected, but notransient ischemic dilatation.1) Reversible defects: None to suggest ischemia.2) Fixed defects: Mildly decreased activity in the apical region most likelyrepresents breast attenuation artifact.Gated wall motion evaluation reveals no regional or global hypokinesis. Thecalculated LVEF is 58 percent.IMPRESSION:No evidence of ischemia. Probable apical breast attenuation artifact. Mildsuspected LV chamber dilatation, but no wall motion abnormality.Professional interpretation provided by [facility]-65.Thank you for this referral.< >Reported By: LIANET HENRIQUEZ D.O.Signed In NovaPro By: LIANET HENRIQUEZ D.O. << Signature on File>> Reported By: LIANET HENRIQUEZ D.O. Signed By: LIANET HENRIQUEZ D.O.Tests performed at:[address] [phone] Normal [facility] NUCLEAR STRESS TEST(Wt < 440 #)on 06-03-2018 NUCLEAR STRESS TEST(Wt < 440#) [place], [place] [address]MVBTVT INFORMATION MANAGEMENTCARDIOLOGY REPORTPatient: ELLA LAWSON WAYNE D D.O.[id number] FStatus: DIS [facility] 2226-BExam # Type/[id number] CARD / NUCLEAR STRESS TEST(Wt < 440#)STRESS TEST REPORTDATE OF [id number]/03/2018REFERRING PHYSICIANDr. Fernandez.The patient came in with dizziness, lightheadedness, shortness of breath. Recommended tohave a stress test.PROTOCOLLexiscan.HEMODY NAMICSResting blood pressure 140/76, resting heart rate 51. Peak blood pressure 124/62, peakheart rate 65.EKGNormal sinus rhythm. No ST-T wave changes appreciated.MEDICAL THERAPYTylenol.CONCLUSIONThe patient completed Lexiscan stress test. EKG was normal. Hemodynamic response wasnormal. Await nuclear report. 06/05/18 0817 KAITLIN QUINN D.O.cc: MAYA FERNANDEZ M.D.; ABRIL BRINK M.D.; RACHELLE HOYOS M.D. << Signature on File>> Reported By: KAITLIN QUINN D.O. Signed By: KAITLIN QUINN D.O.Tests performed at:[address] [phone] Normal [facility] ECHO COMPLETEon 06-02-2018 ECHO COMPLETE [place], [place] [address]WBBBUI INFORMATION MANAGEMENTCARDIOLOGY REPORTPatient: ELLA LAWSONDILANKAITLIN Lori [id number] FStatus: DIS Gail [facility] 2226-BExam # Type/[id number] CARD / ECHO COMPLETEECHOCARDIOGRAM REPORTDATE OF [id number]/02/2018REFERRING PHYSICIANMaya Fernandez M.D.CLINICAL INFORMATIONIndication: Syncope.SONOGRAPHERR.M.HEIGH [id number] IYULHNJP895/902D/M-MODEMEASU REMENTS Pt VALUES NORMALSIVS (Ed) 1.1 cm 0.6-1.2 cmLVP Wall (Ed) 1.1 cm 0.6-1.2 cmLVID (Ed) 4.3 cm 3.8-5.0 cmLVID (Es) 2.7 cm 2.2-3.4 cmL.A. Diameter 3.3 cm 1.5-4.0 cmRoot Diameter 2.7 cm 2.0-3.5 cmESTIMATED EJECTION FOEVQAQD96%TECHNICAL DESCRIPTIONThe patient was imaged in the standard M-mode and 2-D views. Continuous wave and pulsedDoppler interrogation were performed. Color flow was performed.FINDINGS1. Left Ventricle: Left ventricular wall thickness is increased, upper limits of normal.There is normal wall motion seen. Ejection fraction is 65%.2. Left Atrium: Left atrial size is normal.3. Right Ventricle: Normal.4. Right Atrium: Normal.5. Aortic Valve: Aortic valve area is 1.9. Aortic valve is three leaflets, opens freely.No outflow tract obstruction is seen.6. Mitral Valve: Mitral valve area is 3.2. Mitral valve demonstrates normal size andconsistency. Moderate degree of mitral regurgitation is seen. Mitral valve ERO is 0.1.Mitral valve regurgitant volume is 28.7. Pulmonic Valve: Not well seen. Doppler interrogation of the pulmonic valve areademonstrates a moderate degree of regurgitation.8. Tricuspid Valve: Tricuspid valve demonstrates a mild degree of regurgitation.9. Aorta: Ascending aorta is normal.10. Pericardium: No evidence of pericardial fluid or masses noted.11. Intracardiac Masses: No masses noted.12. PA pressure 25 mmHg.13. Reversal of E to A ratio consistent with diastolic dysfunction.CONCLUSIONEchoca rdiogram demonstrates normal wall thickness. Normal wall motion. Ejection wgdxablt96%. The mitral valve demonstrates moderate degree of regurgitation. Tricuspid valvemoderate degree of regurgitation. Pulmonic valve moderate degree of regurgitation. Aorticvalve is sclerotic but opens freely. Diastolic dysfunction is seen. No evidence of anypericardial fluid or masses seen. 06/05/18 0818 KAITLIN QUINN D.O.cc: MAYA FERNANDEZ M.D. << Signature on File>> Reported By: KAITLIN QUINN D.O. Signed By: KAITLIN QUINN D.O.Tests performed at:[address] [phone] Normal [facility] Free T4on 06-02-2018 T4 free mass conc 1.06 ng/dL Normal 0.93-1.7 [facility] Comment on above: Order Comment: ADD O N Performed By: #### L 304.0162 ####ML - [facility] [id number] [place] [address] HISTORY AND PHYSICALon 06-02 HISTORY AND PHYSICAL [place], [place] [address]MNNFTM INFORMATION MANAGEMENTHISTORY AND PHYSICALPatient: ELLA LAWSON COLLIN D M.D.[id number] 83 FStatus: ADM [facility] 2226-BDATE OF DZSFFLJBK38/14/2018CHIEF COMPLAINTSyncope.HISTORYThiselwyn is an 83 year-old female with no medical problems at all. She does not see doctor'sregularly, but has never been on any medications of any kind. Normally, her only complaintis knee pain at baseline. The patient apparently had a syncopal event on the day ofadmission. She was doing some karina with her qpoistmn-uj-sso when her qwtmvphn-lm-xmjdsatch around and found her starting to slump at the table because she had lostconsciousness, caught her and pushed her back upright. The patient regained consciousness,it was felt, after about two minutes and then she was brought to the emergency room. Thepatient remembers getting very, very hot and then does not remember anything happeningsubsequently. She said that she had a similar event in January in [place] where she wassitting, got very, very hot and then slumped against someone. Otherwise, she has nocomplaints at all, feels completely normal at this time.REVIEW OF SYSTEMSNo recent fever or chills. No recent cough or cold, upper respiratory symptoms or illnessof any kind. No change in vision. No sore throat, runny nose, stiff neck or chest pain atall during either of these or other times. No palpitations. No cough or shortness ofbreath. No abdominal pain, diarrhea, nausea, vomiting. No urinary frequency or burning.No skin rashes or lesions. No neurologic changes. No mood or psychiatric changes.PAST MEDICAL HISTORYEssentially negative according to her.PAST SURGICAL HISTORYAppendectomy.SOCIAL HISTORYShe is a lifelong nonsmoker and does not drink alcohol at all.FAMILY HISTORYPositive for hypertension.MEDICATIONSShe is on no medications at all.PHYSICAL EXAMINATIONTemperature 97.4, pulse rate 66, respiratory rate 18, blood pressure 181/89, satting 96% onroom air. HEENT: Pupils are equal, round, reactive to light and accommodation.Extraocular muscles are intact. Mouth and throat are clear. Neck: Supple. No JVD. Nocarotid bruits. Lungs: Clear bilaterally. Heart: Regular. There is a 1/6 systolicmurmur. Abdomen: Soft, nontender, nondistended. Extremities: No pretibial edema.Neurologic exam: Grossly nonfocal.LABSWhite blood cell count 7.0, hemoglobin 13.9, platelet count 236,000. Sodium 143, potassium4.6, chloride 105, bicarbonate 28, BUN 19, creatinine 0.91, glucose 116. CK 74, troponinless than 0.010. Chest x-ray with no acute process. EKG with sinus rhythm at a rate of60, left axis flipped T in lead III.ASSESSMENT AND PLAN1. Syncopal event, unprovoked. The patient has no coronary history at all. We willmonitor overnight on telemetry, give some mild IV fluids and test for orthostatics in themorning and check echocardiogram looking for any structural dysfunction or malignantarrhythmias. If all of those things are normal, the patient can be discharged home withfollowup. If not, may need cardiology opinion. There were no other acute medical issues. 06/02/18 1859 ___MAYA FERNANDEZ M.D.cc: MAYA FERNANDEZ M.D. << Signature on File>> Reported By: MAYA FERNANDEZ M.D. Signed By: AMYA FERNANDEZ M.D.Tests performed at:[address] [phone] Normal [facility] MAGNESIUMon 06-02-2018 Magnesium mass conc 2.4 mg/dL Normal 1.6-2.4 [facility] Comment on above: Order Comment: ADD O N Performed By: #### L 100.0390, L304.0140 ####ML - [id number] [place] [address] TSHon 06-02-2018 Thyrotropin Qn 4.70 uIU/mL High 0.45-4.50 [facility] Comment on above: Order Comment: ADD O N Performed By: #### L 100.0390, L304.0140 ####ML - [facility] AAVOPWNIIC[address] [place] [address] ELECTROCARDIOGRAMon 06-01-20 18 ELECTROCARDIOGRAM [place], [place] [address]GVNYEU INFORMATION MANAGEMENTELECTROCARDIOGRAM REPORTPatient: FREDDYIDMITRISELLA: VANESSA CONDE M.D.[id number] FExam Date: 06/01/18Report #: [id number]: ADM aGil [facility] 2226-BSINUS RHYTHMMARKED LEFT AXIS DEVIATIONMODERATE VOLTAGE CRITERIA FOR LVH, CONSIDER NORMAL VARIANTMINIMAL ST DEPRESSIONABNORMAL ECGNO PREVIOUS TRACINGPhysician Director Of Outreach: VANESSA CONDE M.D.Ventricular Rate EK /minR-R Interval: 987 msP Wave duration: 121 msQRS duration: 96 msP-R interval: 209 msQ-T interval: 425 msQ-T interval (corrected): 427 msQ-T Dispersion: msP wave axis: 58 degQRS axis: -34 degT axis: 25 degSigned in PYRAMIS06/01/18 2312 VANESSA CONDE M.D.cc: << Signature on File>> Reported By: VANESSA CONDE M.D. Signed By: VANESSA CONDE M.D.Tests performed at:[address] [phone] [facility] 06-01-2018 Anion gap 3 molar conc 14.6 mmol/L Low - [facility] Comment on above: Performed By: #### L 100.0010 ####[address] [address] Calcium mass conc 9.7 mg/dL Normal 8.8-10.2 [facility] Comment on above: Performed By: #### L 100.0010 ####[address] [address] Chloride molar conc 105 mmol/L Normal 98-107 [facility] Comment on above: Performed By: #### L 100.0010 ####[address] [address] Creatinine mass conc 0.91 mg/dL High 0.50-0.90 [facility] Comment on above: Performed By: #### L 100.0010 ####[address] [address] eGFR if AFR SANDRA > 60 ml/min/1.73m2 Normal Count includes the [facility] Comment on above: Result Comment: eGFR >= 60 Indicates normal kidney function. * eGFR IS AN ESTIMATE * (AFR SANDRA = ) (non-AFR AM = NON-) MDRD calculation used in the eGFR should not be used to dose medications. For further limitations of the eGFR please refer to the Physician Website or the National Kidney Disease Education Program website (www.nkdep.nih.gov). Performed By: #### L 100.0010 ####[facility] K[address] [place] [address] eGFR nonAFR Sandra 59 Normal [facility] Comment on above: Performed By: #### L 100.0010 ####[address] [address] Glucose mass conc 116 mg/dL High 82-115 [facility] Comment on above: Performed By: #### L 100.0010 ####[address] [address] Potassium molar conc 4.6 mmol/L Normal 3.5-5.0 [facility] Comment on above: Performed By: #### L 100.0010 ####ML [facility] HKRTODPHXL[address] [place] [address] Sodium molar conc 143 mmol/L Normal 135-145 [facility] Comment on above: Performed By: #### L 100.0010 ####[address] [address] TCO2 28 mmol/L Normal 22-29 [facility] Comment on above: Performed By: #### L 100.0010 ####[facility] X[address] [place] [address] Urea nitrogen mass conc 19 mg/dL Normal 8-23 [facility] Comment on above: Performed By: #### L 100.0010 ####[facility] [address]YUZDLPGU[address] [place] [address] CBCon 06-01-2018 Basophils Auto #/vol (Bld) 0.10 x10(3) Normal 0.00-0.10 [facility] Comment on above: Performed By: #### L 200.0010 ####ML - ZSEKWZNOZH[address] [place] [address] Basophils/100 WBC Auto (Bld) 1.2 % High 0.0-1.0 [facility] Comment on above: Performed By: #### L 200.0010 ####ML [facility] BTBTVOIRXN[address] [place] [address] Eosinophils Auto #/vol (Bld) 0.10 x10(3) Normal 0.00-0.54 [facility] Comment on above: Performed By: #### L 200.0010 ####ML [facility] DXPITGVRGO[address] [place] [address] Eosinophils/100 WBC Auto (Bld) 1.0 % Normal 0.5-4.9 [facility] Comment on above: Performed By: #### L 200.0010 ####ML [address] [address] Erythrocyte distribution width Auto Ratio (RBC) 13.2 % Normal 12.5-15.7 [facility] Comment on above: Performed By: #### L 200.0010 ####ML [facility] TALQWGGDYF[address] [place] [address] Hematocrit Auto Volume Fraction (Bld) 40.6 % Normal 36.0-48.0 [facility] Comment on above: Performed By: #### L 200.0010 ####ML - [address] [address] Hemoglobin mass conc (Bld) 13.9 g/dL Normal 12.0-16.0 [facility] Comment on above: Performed By: #### L 200.0010 ####ML [facility] EMZGFLRLKT[address] [place] [address] Lymphocytes Auto #/vol (Bld) 2.00 x10(3) Normal 1.00-3.50 [facility] Comment on above: Performed By: #### L 200.0010 ####ML [facility] DOPTHNVIGO[address] [place] [address] Lymphocytes/100 WBC Auto (Bld) 28.9 % Normal 16.0-48.0 [facility] Comment on above: Performed By: #### L 200.0010 ####ML [facility] MCPRMBIIUE669 [place] [address] MCH Auto Entitic mass (RBC) 32.8 pg Normal 28.5-32.9 [facility] Comment on above: Performed By: #### L 200.0010 ####ML [facility] WSXIEBUADI[address] [place] [address] MCHC Auto mass conc (RBC) 34.3 g/dL Normal 33.0-36.0 [facility] Comment on above: Performed By: #### L 200.0010 ####ML [facility] ESFUHMNXEE[address] [place] [address] MCV Auto Entitic volume (RBC) 95.9 fL Normal 80.0-99.0 [facility] Comment on above: Performed By: #### L 200.0010 ####ML [facility] AOHGGVVUXK[address] [place] [address] Monocytes Auto #/vol (Bld) 0.60 x10(3) Normal 0.30-0.80 [facility] Comment on above: Performed By: #### L 200.0010 ####ML [facility] NJLTVLTMEN[address] [place] [address] Monocytes/100 WBC Auto (Bld) 8.8 % Normal 4.3-11.2 [facility] Comment on above: Performed By: #### L 200.0010 ####ML [facility] TVLCVOPVPB[address] [place] [address] Neutrophils Auto #/vol (Bld) 4.20 x10(3) Normal 1.40-6.50 [facility] Comment on above: Performed By: #### L 200.0010 ####ML [facility] MXCTMHYXBL[address] [place] [address] Neutrophils/100 WBC Auto (Bld) 60.1 % Normal 45.0-73.0 [facility] Comment on above: Performed By: #### L 200.0010 ####ML [facility] UKPBWCFUAF[address] [place] [address] Platelet mean volume Auto Entitic volume (Bld) 9.3 fL Normal 7.5-9.5 [facility] Comment on above: Performed By: #### L 200.0010 ####ML - [facility] [place] [address] Platelets Auto #/vol (Bld) 236 X10(3) Normal 150-450 [facility] Comment on above: Performed By: #### L 200.0010 ####ML - [address] [address] RBC Auto #/vol (Bld) 4.23 x10(6) Normal 3.30-5.00 [facility] Comment on above: Performed By: #### L 200.0010 ####ML - KGLCCNLIGK[address] [place] [address] WBC Auto #/vol (Bld) 7.0 x10(3) Normal 4.5-10.0 [facility] Comment on above: Performed By: #### L 200.0010 ####[address] [address] CHEST (TWO VIEWS) - CXRon CHEST (TWO VIEWS) - CXR [address] [address]Qxxq: ELLA LAWSON MPhys: VANESSA CONDE M.D.: [birth year] Age: 83 Sex: FAcct: [id number] Loc: EDExam Date: 06/01/18 Status: REG ERRadiology No.: [id number] Number: [id number] # Type/[id number] RAD / CHEST (TWO VIEWS) - CXRTwo-view chest[]Clinical Indication: Syncopal episodeComparison: 09/18/2008Findings: The cardiac contours are enlarged accentuated by AP uprighttechnique. Aeration pattern is stable given technical factors. No floridvascular congestion, pneumothorax, or pneumomediastinum is noted. Degenerativechanges present in the spine. There is calcification within the aortaImpression: No acute processProfessional interpretation provided by [facility] [id number].Thank you for this referral.< >Reported By: OLGA CHANG MDSigned In [facility] By: OLGA CHANG MD << Signature on File>> Reported By: OLGA CHANG MD Signed By: OLGA CHANG MDTests performed at:[address] [phone] Normal [facility] CKon 06-01-2018 CK enzyme act/vol 74 U/L Normal 26-192 [facility] Comment on above: Result Comment: Rela tive Index is not calculated as it is onlyapplicable to CK values greater than or equal to 192 IU/L. NO RELATIVE INDEX PERFORMED Performed By: #### L 301.0100, L301.0105, L301.0120 #### - [id number] [place] [address] CK-MBon 06-01-2018 CK.MB mass conc 2.3 ng/mL Normal 1.0-5.34 [facility] Comment on above: Performed By: #### L 301.0100, L301.0105, L301.0120 ####ML - OSHPWMRZDD602 [place] [address] TROPONIN Ton 06-01-2018 Troponin T.cardiac mass conc ug/L Normal 0-0.010 [facility] Comment on above: Performed By: #### L 301.0100, L301.0105, L301.0120 ####ML - TLQSEKRWMS150 [place] [address] Vital Signs Date Time Vital Sign Value Performing Clinician Dorothy moser 07-06-2025 10: Body height 167.64 cm Kevin PALAFOX Work Phone: [facility] 07-06-2025 10:040 Body mass index (BMI) [Ratio] 27.1 kg/m2 Kevin PALAFOX Work Phone: [facility] 07-06-2025 10: Body weight 76.2 kg Kevin PALAFOX Work Phone: [facility] 07-06-2025 10:09-0400 Diastolic blood pressure 88 mm[Hg] Luke Chin PA Work Phone: [facility] 07-06-2025 10:09-0400 Heart rate 57 /min Luke Chin PA Work Phone: [facility] 07-06-2025 10:09-0400 Respiratory rate 18 /min Luke Chin PA Work Phone: [facility] 07-06-2025 10:09-0400 Systolic blood pressure 172 mm[Hg] Luke Chin PA Work Phone: [facility] Encounters Encounter Date Encounter Type Care Provider Facility Start: 08-02-2025 ambulatory Bob Azam Facility:[facility] Start: 07-24-2025 ambulatory Bob Azam Facility:[facility] Start: 07-20-2025 ambulatory Luke Chin Facili ty:[facility] Start: 07-06-2025 End: 07-06-2025 ambulatory Luke Chin PA Work Phone: -Laboratory Start: 07-06-2025 End: 07-06-[address] Bob Nascimento MD -Laboratory Work Phone: Start: 07-06-2025 End: 07-06-[address] Bob Nascimento MD -[facility] Work Phone: Start: 07-06-2025 End: 07-06-2025 ambulatory Luke Chin PA Work Phone: [facility] Start: 07-06-2025 End: 07-06-2025 ambulatory Bob Azam Facility:[facility] Start: 04-14-2025 End: 04-14-2025 ambulatory LUKE E CIHN [facility] Start: 01-16-2025 End: 01-16-2025 ambulatory ONIEL GONSALEZ [facility] Start: 02-10-2023 End: 02-15-[address] DAYANNA MEDELLIN DO Facility:B Start: 06-01-2018 End: 06-03-2018 Evaluation and management of inpatient VANESSA CONDE Facility:[facility] Plan of Treatment Date Care Activity Detail Author Start: 07-06-2025 End: 07-06-2025 Evaluation of diagnostic study results [facility] NM Heart Views W str ess and W radionuclide IV [facility] NM Heart Views W str ess and W radionuclide IV [facility] US Carotid arteries [facility] Heart [facility] Payers Date Payer Category Payer Self-pay 2023 Medicare [id number] 2002 Medicare [id number] 1935 Unknown [id number] 2.16.8 [id number] 1935 Unknown [id number] 2.16.8 [id number] 1935 Unknown [id number] 2.16.8 [id number] Unknown [id number] 2.16.8 [id number] Unknown [id number] 2.16.8 [id number] Unknown [id number] 2.16.8 [id number] Unknown [id number] 2.16.8 [id number] Unknown [id number] 2.16.8 [id number] Social History Date Type Detail Facility Start: 06-15-2025 Tobacco smoking stat [facility] Never smoked tobacco (finding) [facility] Sex Female [facility] Start: 1935 Sex Assigned At Female W [facility] Evaluation note 07-06-2025 Note Date & Type Note Facility 07-06-2025 Evaluation note Diagnosis Onset Date Resolution Hypertension chronic July 062024 9:53am PVCs (premature ventricular contractions) chronic July 06, 2025 9:53am Syncope chronic June 9:53am [facility] Work Phone: Progress note 07-06-2025 Note Date & Type Note Facility 07-06-2025 Progress note [facility] Evaluation note Note Date & Type Note Facility Evaluation note Diagnosis Onset Date Resolution Hypertension chronic July 062024 9:53am PVCs (premature ventricular contractions) chronic July 06, 2025 9:53am Syncope chronic June 9:53am [facility] Work Phone: Progress note Note Date & Type Note Facility Progress note Note Date/Time July 06, 2025 10:48am [facility] [address] [place] [address] OFFICE VISIT Date of Service: 07/06/25 MR#: [id number] Acct: [id number] Name: ELLA LAWSON Rep #: [id number] : 1935 Provider: Dr. Maximino Nascimento MD Age/Sex: 89/F Location: [facility] Status: Signed HPI HPI History of Present Illness Details: This pleasant 89-year-old female has past medical history significant for hypertension. She is here for her complaints of syncopal episodes. According to the patient, she has been having syncopal episodes for many years now. She would get them rarely in the past but recently she has been getting them more frequently. She has had a syncopal episode in January of this year and then again last month. Per patient, she would be sitting when all of a sudden she loses consciousness. Denies any prodromal symptoms. No warning signs. Denies any chest pains or shortness of breath prior to that or afterwards. No lightheadedness or dizziness. No palpitations. No diaphoresis. Per patient and her daughter, she regains consciousness spontaneously after couple of minutes. No seizure activity has ever been noticed. No bladder or bowel incontinence. Patient recently had a 30-day event monitoring done. It showed occasional first-degree AV block. PACs and PVCs were noted. No significant atrial or ventricular runs reported. Patient denies any history of chest pain or shortness of breath either at rest or with exertion. No severe headaches. No orthopnea or PND. Denies any palpitations. No ankle edema. Intake Vital Signs 07/06/25 10:09 Height 5 ft 6 in Weight: 168 lb BMI 27.1 BP 172/88 H Blood Pressure Location Lt brachial Position Sitting Respiration 18 Pulse 57 L Pulse Source Monitor Intake Visit Reasons: PAC/PVC/AFIB ([facility]) Director Of Outreach Required: No Accompanied by: Daughter Is patient in pain?: No Allergies No Known Allergies Allergy (Unverified 07/06/25 09:59) Medications ?Medication ?Instructions ?Recorded ?Confirmed ?Type lisinopril 5 mg tablet 5 mg PO QDAY 06/15/25 History aspirin 81 mg tablet 81 mg PO QDAY 07/06/2507/06 History factor 5 PO QDAY 07/06/25 07/06/25 Hi story forever arctic sea PO BID 07/06/25 07/06/25 His tory garlic-Thyme PO BID 07/06/25 07/06/25 His tory oral chelation 11 PO DAILY 07/06/25 07/06/25 H istory vit b12 PO BID 07/06/25 07/06/25 His tory Have you fallen in the past year?: Yes (2- pass out) [facility] Medical History (Updated 07/06/25 @ 10:[address] Bob Nascimento MD) Heart murmur Hypertension Syncope Hyperlipidemia Social History (Updated 06/15/25 @ 15:33 by Caity Adan LPN) Smoking Status: Never smoker substance use type: does not use caffeine: No ROS Const Const: Positive for fatigue; Negative for weakness Eyes Eyes: Negative for change in vision ENT ENT: Positive for balance problems; Negative for dizziness Cardio Chest Pain: No Palpitations: No Edema: Bilateral Resp Respiratory: Negative for SOB with activity, SOB at rest or SOB orthopnea\SOB lying down GI GI: Negative nausea or heartburn Musc Musc: Positive for balance problems Neuro Neuro: Positive for near syncope and syncope; Negative for dizziness or weakness Endo Endo: Positive for fatigue Cardiology Exam Const Appearance: comfortable and no acute distress Nutritional Appearance: well nourished Neck Neck: no JVD Carotids: Negative bruit Chest Auscultation: Bilateral: Clear to Auscultation Cardio Rate: regular rate Rhythm: regular rhythm Heart sounds: S1 normal and S2 normal Soft systolic murmur at base. Neuro General: patient alert, patient awake and patient oriented x3 Extremities Lower Extremity Edema: None: Bilateral Supplemental Info Supplemental Information Past Visits: Cardiology Visit Today Assessment and Plan Assessment and Plan (1) Syncope: Status: Chronic Plan: Longstanding issue for the patient but becoming more frequent. Will check echocardiogram. Check Lexiscan stress Myoview. Check carotid Doppler. CT scan of the head. (2) Hypertension: Status: Chronic Plan: Blood pressure above goal. DC lisinopril. Start on losartan 50 mg once daily. (3) PVCs (premature ventricular contractions): Status: Chronic Plan: PVCs and PACs noted on 30-day event monitoring. Asymptomatic. First-degree AV block. Likely underlying sick sinus syndrome. Monitor. Check TSH. Magnesium. Basic serum chemistries. Orders: Orders 12 Lead EKG performed by BMS Today I10 - Essential (primary) hypertension, R55 - Syncope and collapse Thyroid Stim Hormone (TSH) Today I10 - Essential (primary) hypertension Comprehensive Metabolic Profil Today I10 - Essential (primary) hypertension, R55 - Syncope and collapse Magnesium Today I10 - Essential (primary) hypertension, R55 - Syncope and collapse Plan Details Follow Up: 3 Months Coding Level of Care Code Off vis,new,level 4 Diagnoses Syncope R55 Hypertension I10 PVCs (premature ventricular contractions) I49.3 Coding Level of Care Code Off vis,new,level 4 Diagnoses Syncope R55 Hypertension I10 PVCs (premature ventricular contractions) I49.3 Clinical Quality Measures Falls Risk Screening/Assistive Devices Have you fallen in the past year?: Yes (2- pass out) 07/06/25 1050 <Electronically signed by Bob Nascimento MD> Date _ Bob Nascimento MD Cosigner Signature: Date (if applicable) CC: VIVIENNE Barbosa ~ [facility] Work Phone: Reason for referral (narrative) Note Date & Type Note Facility Reason for referral (narrative) No reason for referral information available [facility] Work Phone: Summary Purpose Family History No Family History Records FoundNo Family History Records FoundNo Family History Records FoundNo Family History Records FoundNo Family History Records FoundNo Family History Records Found Advance Directives No Advanced Directives Records FoundNo Advanced Directives Records FoundNo Advanced Directives Records FoundNo Advanced Directives Records FoundNo Advanced Directives Records FoundNo Advanced Directives Records Found Chief Complaint and Reason for Visit Chief Complaint Admit Date PAC/PVC/AFIB ([facility]) June 9:53am E-ORDER July 06, 2025 10:55am Reason for Visit Admit Date Hypertension July 06, 2025 9:53am PVCs (premature ventricular contractions ) July 06, 2025 9:53am Syncope July 06, 2025 9:53am Additional Source Comments INFORMATION SOURCE (unrecogn ized section and content) DATE CREATED AUTHOR 06/16/2018 [facility] DATE CREATED AUTHOR AUTHOR'S ORGANIZ ATION 09/08/2021 [facility] DATE CREATED AUTHOR AUTHOR'S ORGANIZ ATION 02/14/2023 [facility] DATE CREATED AUTHOR AUTHOR'S ORGANIZ ATION 01/22/2025 [facility] DATE CREATED AUTHOR AUTHOR'S ORGANIZ ATION 04/15/2025 [facility] DATE CREATED AUTHOR AUTHOR'S ORGANIZ ATION 07/22/2025 [facility] Care Teams (unrecognized sec tion and content) Team Status: Active Member Role/Relationship Status Dates VIVIENNE Barbosa Primary care physician Active Team Status: Inactive Member Role/Relationship Status Dates VIVIENNE Barbosa Primary care physician Active Start: July 06, 2025 End: July 06, 2025 VIVIENNE Barbosa Referring Provider Active Start: July 06, 2025 End: July 06, 2025 Dr. Bob Nascimento MD Attending physician Active Start: July 06, 2025 End: July 06, 2025 Team Status: Active Member Role/Relationship Status Dates VIVIENNE Barbosa Primary care physician Active Start: July 06, 2025 Dr. Bob Nascimento MD Attending physician Active Start: July 06, 2025 Dr. Bob Nascimento MD Referring Provider Active Start: July 06, 2025 Team Status: Inactive Member Role/Relationship Status VIVIENNE Carr Primary care physician Active Start: July 06, 2025 End: July 06, 2025 Dr. Bob Nascimento MD Attending physician Active Start: July 06, 2025 End: July 06, 2025 Dr. Bob Nascimento MD Referring Provider Active Start: July 06, 2025 End: July 06, 2025 Goals (unrecognized section and content) Goals may be documented in a n alternate sectionGoals may be documented in an alternate section FOR RECORDS PERTAINING TO PATIENTS WHO ARE OR HAVE BEEN ENROLLED IN A CHEMICAL DEPENDENCY/SUBSTANCEABUSE PROGRAM, SOME INFORMATION MAY BE OMITTED. This clinical summary was aggregated from multiple sources. Caution should be exercised in using it in the provision of clinical care. This summary normalizes information from multiple sources, and as a consequence, information in this document may materially change the coding, format and clinical context of patient data. In addition, data may be omitted in some cases. CLINICAL DECISIONS SHOULD BE BASED ON THE PRIMARY CLINICAL RECORDS. [employer] provides no warranty or guarantee of the accuracy or completeness of information in this document.
== END | disposition home or self-care (01) ==
LOC: CT 08:09
PROVIDERS: PCP Physician Assistant; Referring Provider Internal Medicine Cardiovascular Disease; Visit Provider Internal Medicine Cardiovascular Disease
DX: R55 Syncope and collapse (principal)
CPT/HCPCS: 70470; 93880; Q9967

== ENCOUNTER → 2025-08-02 | Outpatient (CLI) | payer MEDICARE, SELFPAY ==
--- NOTE | 2025-08-02 06:52 | ECHOCS_ITS ---
Reason For Study Reason For Study: SYNCOPE/NEAR SYNCOPE Procedure This was a 2D Doppler, Color Flow transthoracic echocardiogram. The study was technically difficult. Due to suboptimal imaging windows. Contrast injection was performed. Exam performed in department. Left Ventricle Normal LV size. Mild concentric left ventricular hypertrophy. The left ventricular ejection fraction is 65 %. Stage 2 diastolic dysfunction. Right Ventricle Normal right ventricle. Atria The left atrium is mildly enlarged. Normal right atrium. Mitral Valve Mild-Moderate (1-2+) mitral valve insufficiency. Tricuspid Valve Trivial tricuspid valve insufficiency. Right ventricular systolic pressure estimated to be 36 mmHg. Aortic Valve Mild to moderately calcified aortic valve leaflets. Aortic valve sclerosis without stenosis. Trivial aortic valve insufficiency. Pulmonic Valve The pulmonic valve is not well visualized. Great Vessels Normal sized aortic root. Pericardium/Pleural No pericardial effusion. Medication Diluted definity 2.0ml given slow IV push to enhance endocardial definition. MMode/2D Measurements & Calculations LVIDd: 4.4 cm IVSd: 1.3 cm Ao root diam: 2.8 cm LVIDs: 3.0 cm LVPWd: 1.1 cm RVDd: 3.0 cm FS: 33.0 % LAV(MOD-bp): 80.9 ml LVAd ap4: 27.2 cm2 LVAd ap2: 17.7 cm2 LAV(MOD-bp) Indexed: 43.6 ml/m2 LVLd ap4: 7.3 cm LVLd ap2: 6.5 cm LAV(MOD-sp2): 78.3 ml EDV(MOD-sp4): 83.5 ml EDV(MOD-sp2): 39.1 ml LAV(MOD-sp4): 80.3 ml EDV(sp4-el): 86.1 ml EDV(sp2-el): 40.9 ml LVAs ap4: 17.0 cm2 LVAs ap2: 9.6 cm2 LVLs ap4: 6.4 cm LVLs ap2: 5.5 cm ESV(MOD-sp4): 38.7 ml ESV(MOD-sp2): 13.9 ml ESV(sp4-el): 38.7 ml ESV(sp2-el): 14.2 ml EF(MOD-sp4): 53.6 % EF(MOD-sp2): 64.3 % EF(sp4-el): 55.0 % SV(MOD-sp4): 44.8 ml SV(MOD-sp2): 25.2 ml SV(sp4-el): 47.4 ml SI(MOD-sp4): 24.1 ml/m2 SI(MOD-sp2): 13.5 ml/m2 LA A4 area: 26.8 cm2 LA dimension(2D): 3.4 cm RA A4 area: 14.4 cm2 TAPSE: 2.1 cm Time Measurements MV dec time: 0.24 sec Doppler Measurements & Calculations MV E max asim: 63.5 cm/sec Lat Peak E' Asim: 6.6 cm/sec Med Peak E' Asim: 5.3 cm/sec MV A max asim: 117.7 cm/sec E/E' lat: 9.7 E/E' med: 12.0 MV E/A: 0.54 MV V2 max: 132.7 cm/sec MV P1/2t max asim: 84.8 cm/sec Ao V2 max: 182.7 cm/sec MV max P.0 mmHg MV P1/2t: 74.9 msec Ao max P.4 mmHg MV V2 mean: 70.9 cm/sec MV dec slope: 331.3 cm/sec2 Ao V2 mean: 122.4 cm/sec MV mean P.3 mmHg MVA(P1/2t): 2.9 cm2 Ao mean P.8 mmHg MV V2 VTI: 33.1 cm Ao V2 VTI: 41.7 cm AV (velocity ratio): 0.61 LV V1 max: 123.2 cm/sec MR max asim: 500.8 cm/sec LV V1 max P.1 mmHg MR max P.3 mmHg PI dec slope: 271.7 cm/sec2 LV V1 mean P.9 mmHg LV V1 mean: 78.0 cm/sec LV V1 VTI: 25.5 cm TR max asim: 278.4 cm/sec TR max P.0 mmHg ECHO/Echo Complete W/ Contrast Interpretation Summary Mild concentric left ventricular hypertrophy. The left ventricular ejection fraction is 65 %. Stage 2 diastolic dysfunction. The left atrium is mildly enlarged. Mild-Moderate (1-2+) mitral valve insufficiency. Mild to moderately calcified aortic valve leaflets. Aortic valve sclerosis with out stenosis. Ordering Physician: Bob Nascimento Referring Physician: Kevin Mckeon Performed By: Gabriela Atkins, ANANYA, RVT
--- NOTE | 2025-08-03 12:24 | STRESSREP ---
Stress Test Report Date: 08/02/2025 Procedure: Pharmacologic stress nuclear imaging study Indications: Syncope Consent: Per the patient Procedure: The patient underwent pharmacologic (Regadenoson 0.4mg ) evaluation with a peak heart rate of 83 beats per minute (62%predicted maximal heart rate) and a peak blood pressure of 170/82 mmHg. The baseline ECG demonstrated sinus rhythm with nonspecific ST-T changes. The peak pharmacologic ECG was nondiagnostic. There were no cardiac dysrhythmias pretest, during pharmacologic infusion, or recovery. There was no complaint of chest discomfort during pharmacologic infusion or recovery. The patient was injected with 12.5 millicuries of technetium 99m Cardiolite and subsequently rest SPECT Cardiolite nuclear imaging was obtained in the horizontal long, vertical long, and short axis views. The patient underwent pharmacologic (Regadenoson) evaluation. The patient was injected with 37.1 millicuries of technetium 99m Cardiolite and subsequently stress SPECT Cardiolite nuclear imaging was obtained in the horizontal long, vertical long, and short axis views. A gated Cardiolite study at peak stress was obtained. The examination was stopped secondary to completion of protocol. Rest and stress SPECT Cardiolite nuclear imaging status post realignment, normalization, and attenuation correction demonstrate no fixed or reversible perfusion defects. There is end systolic thickening and brightening. The gated Cardiolite study demonstrates myocardial thickening and inward wall motion. The reported LVEF is 74%. Impression: 1. Pharmacologic (Regadenoson) evaluation 2. Peak pharmacologic ECG with no diagnostic changes. 3. There were no cardiac dysrhythmias pretest, during pharmacologic infusion, or recovery. 5. Rest and stress SPECT Cardiolite nuclear imaging demonstrate relative uniform tracer uptake and myocardial perfusion appearing within normal limits. 6. The gated Cardiolite study reports an LVEF of 74%. This note was generated with [employer] software. It may contain incorrect words, spelling, and punctuation that were not noted in checking the note before signing.
== END | disposition home or self-care (01) ==
LOC: CVS 06:51
PROVIDERS: PCP Physician Assistant; Referring Provider Internal Medicine Cardiovascular Disease; Visit Provider Internal Medicine Cardiovascular Disease
DX: R55 Syncope and collapse (principal); R94.31 Abnormal electrocardiogram [ECG] [EKG]; I49.3 Ventricular premature depolarization; I10 Essential (primary) hypertension
CPT/HCPCS: 78452; 93017; 93306; A9500; Q9957; A4216; C8929; J2785